=== PATIENT | male | born 1980 | race Caucasian/White ===

== ENCOUNTER 2024-05-15 17:51 | Emergency (ER) | payer SELFPAY ==
[~2024-05-15] VITALS: Ht 177.8 cm; Wt 70.0 kg
[2024-05-15 17:59] VITALS: BP 128/78; PULSE 68; RESP 15; TEMP 98.5; O2SAT 97
== END 2024-05-15 22:27 | disposition home or self-care (01) ==
LOC: ER 17:51
DX: R20.2 Paresthesia of skin (principal); Z59.00 Homelessness unspecified
CPT/HCPCS: 99283

== ENCOUNTER 2025-02-09 23:25 | Emergency (ER) | payer MEDICAID, OTHER ==
[~2025-02-09] VITALS: Ht 170.2 cm; Wt 68.4 kg
[2025-02-09 23:38] VITALS: O2SAT 99
[2025-02-10] MEDS: ACETAMINOPHEN 500MG TABLET PO ONE (02:30)
[2025-02-10] MEDS: HYDROXYZINE 25MG TABLET PO ONE (02:35)
[2025-02-10] MEDS ORDERED: SULF1TAB48 MT (03:18)
[2025-02-10] MEDS ORDERED: BO1 TP (03:18)
[2025-02-10] MEDS ORDERED: ACET-2708 MT (03:18)
[2025-02-10 03:48] VITALS: BP 122/77; PULSE 83; RESP 18; TEMP 36.7; O2SAT 100
== END 2025-02-10 03:50 | disposition home or self-care (01) ==
LOC: ER 23:25
DX: S92.402A Displaced unspecified fracture of left great toe, initial encounter for closed fracture (principal); Z86.19 Personal history of other infectious and parasitic diseases; X58.XXXA Exposure to other specified factors, initial encounter; Y93.89 Activity, other specified; Y92.89 Other specified places as the place of occurrence of the external cause; Y99.8 Other external cause status
CPT/HCPCS: 71100; 73630; 99284